=== PATIENT | male | born 1955 | race Caucasian/White ===

== ENCOUNTER 2017-02-04 10:38 | Inpatient (IN) | payer MEDICAID ==
[~2017-02-04] VITALS: Ht 182.9 cm; Wt 73.0 kg
[2017-02-04 11:31] LABS: BASOPHIL % 0.5 % (0-2); PLATELET COUNT 245 x10^3mcL (130-400); RED CELL DISTRIBUTION WIDTH 15.4 % (11.5-14.5)
[2017-02-04 11:42] LABS: CALCIUM 8.5 mg/dL (8.5-10.1); CARBON DIOXIDE 18.9 mmol/L (21-32); CREATININE SERUM 1.4 mg/dL (0.7-1.3); POTASSIUM SERUM 3.6 mmol/L (3.5-5.1)
[2017-02-04 11:45] LABS: ALBUMIN 3.6 g/dL (3.4-5.0); BILIRUBIN TOTAL 0.8 mg/dL (0.20-1.00); TOTAL PROTEIN, SERUM 7.2 g/dL (6.4-8.2)
[2017-02-04 12:00] LABS: CK-MB 3.9 ng/mL (0-3.6)
[2017-02-04 14:21] LABS: FREE T4 1.04 ng/dL (0.76-1.46); FREE THYROXINE INDEX 2.2 ug/dL (1.4-4.5); T4(THYROXINE) 6.5 ug/dL (4.7-13.3)
[2017-02-04 14:57] VITALS: BP 168/112
[2017-02-04 16:28] VITALS: BP 121/79
[2017-02-04 19:43] VITALS: BP 168/100
[2017-02-04 23:14] VITALS: BP 152/108
[2017-02-05 03:06] LABS: BASOPHIL % 0.5 % (0-2); PLATELET COUNT 214 x10^3mcL (130-400)
[2017-02-05 03:10] LABS: RED CELL DISTRIBUTION WIDTH 15.1 % (11.5-14.5)
[2017-02-05 03:20] LABS: CALCIUM 8.5 mg/dL (8.5-10.1); CARBON DIOXIDE 22.9 mmol/L (21-32); CHLORIDE SERUM 105 mmol/L (98-107); GFR1 > 60 mL/min; GLUCOSE SERUM 91 mg/dL (74-106); MAGNESIUM 1.8 mg/dL (1.8-2.4); PHOSPHOROUS 3.2 mg/dL (2.5-4.9); POTASSIUM SERUM 3.2 mmol/L (3.5-5.1); SODIUM SERUM 137 mmol/L (136-145)
[2017-02-05 03:21] VITALS: BP 136/73
[2017-02-05 07:45] VITALS: BP 132/103
[2017-02-05 11:45] VITALS: BP 163/72
[2017-02-05 15:45] VITALS: BP 149/78
[2017-02-05 17:05] LABS: microscopic required? NO
[2017-02-05 17:16] LABS: urine erythrocyte NEGATIVE (NEGATIVE)
[2017-02-05 17:34] LABS: AMPHETAMINE QUAL UR POSITIVE (NEG <=1000)
[2017-02-05 20:40] VITALS: BP 159/97
[2017-02-06 05:04] VITALS: BP 133/77
[2017-02-06 09:23] VITALS: BP 151/87
[2017-02-06 09:30] VITALS: BP 151/87
[2017-02-06] MEDS ORDERED: LIPI10 PO (09:30)
[2017-02-06] MEDS ORDERED: TOP50 PO (09:44)
[2017-02-06] MEDS ORDERED: ZES10 PO (09:45)
[2017-02-06] MEDS ORDERED: ECO81 PO (09:45)
[2017-02-06] MEDS ORDERED: THERA TABS1 TAB PO (09:45)
[2017-02-06] MEDS ORDERED: LASIX40 MG PO (09:46)
[2017-02-06 12:06] VITALS: BP 151/87
[2017-02-06] MEDS ORDERED: COUMADIN3 MG PO (12:06)
[2017-02-06 12:49] VITALS: BP 151/87
[2017-02-06 13:11] VITALS: BP 140/94
== END 2017-02-06 13:50 | disposition home or self-care (01) | DRG 194 ==
LOC: ED 10:38 → IC 12:51 → MU 02-05 20:09 → DU 02-05 20:26
PROVIDERS: Emergency Medicine; Internal Medicine Interventional Cardiology; ADMIT Family Medicine
DX: I11.0 Hypertensive heart disease with heart failure (principal); J96.01 Acute respiratory failure with hypoxia; N17.0 Acute kidney failure with tubular necrosis; I50.43 Acute on chronic combined systolic (congestive) and diastolic (congestive) heart failure; E87.2 Acidosis; J44.1 Chronic obstructive pulmonary disease with (acute) exacerbation; I16.1 Hypertensive emergency; E78.5 Hyperlipidemia, unspecified; E87.6 Hypokalemia; K21.9 Gastro-esophageal reflux disease without esophagitis; M94.0 Chondrocostal junction syndrome [Tietze]; I48.92 Unspecified atrial flutter; T43.624A Poisoning by amphetamines, undetermined, initial encounter; I42.7 Cardiomyopathy due to drug and external agent; Y92.89 Other specified places as the place of occurrence of the external cause; F17.210 Nicotine dependence, cigarettes, uncomplicated; I27.2 Other secondary pulmonary hypertension
CPT/HCPCS: 36600; 80307; 83880; 84439; 94150; J0282; J0360; J1644; J1940; J2270; J3010; J3490; J7030; J7620; Q0092

== ENCOUNTER 2018-03-01 12:21 | Inpatient (IN) | payer OTHER ==
[~2018-03-01] VITALS: Ht 182.9 cm; Wt 71.0 kg
[~2018-03-01 12:21] MED LIST: COUMADIN3 MG PO; ECO81 PO; LASIX40 MG PO; LIPI10 PO; THERA TABS1 TAB PO; TOP50 PO; ZES10 PO
[2018-03-01 12:58] LABS: BASOPHIL % 0.3 % (0-2); PLATELET COUNT 221 x10^3mcL (130-400); RED CELL DISTRIBUTION WIDTH 14.3 % (11.5-14.5)
[2018-03-01 13:08] LABS: CALCIUM 9.2 mg/dL (8.5-10.1); CARBON DIOXIDE 26.4 mmol/L (21-32); CHLORIDE SERUM 101 mmol/L (98-107); CREATININE SERUM 1.2 mg/dL (0.7-1.3); GFR1 > 60 mL/min; GLUCOSE SERUM 140 mg/dL (74-106); POTASSIUM SERUM 5.2 mmol/L (3.5-5.1); SODIUM SERUM 137 mmol/L (136-145)
[2018-03-01 13:12] LABS: ALBUMIN 3.7 g/dL (3.4-5.0); ALKALINE PHOSPHATASE 99 U/L (46-116); ALT/SGPT 85 U/L (16-63); AST/SGOT 71 U/L (15-37); TOTAL PROTEIN, SERUM 7.3 g/dL (6.4-8.2)
[2018-03-01 16:05] LABS: CHOLESTEROL/HDL RATIO 3.1; MAGNESIUM 2.1 mg/dL (1.8-2.4)
[2018-03-01 16:07] LABS: T3 TOTAL 0.91 ng/mL
[2018-03-01 16:11] VITALS: BP 149/116
[2018-03-01 16:12] LABS: FREE T4 0.99 ng/dL (0.76-1.46); FREE THYROXINE INDEX 2.5 ug/dL (1.4-4.5); T4(THYROXINE) 7.1 ug/dL (4.7-13.3)
[2018-03-01 16:13] VITALS: Ht 182.9 cm; Wt 71.0 kg
[2018-03-01 16:25] VITALS: BP 149/116
[2018-03-01 18:13] VITALS: BP 138/90
[2018-03-01 20:29] LABS: microscopic required? NO
[2018-03-01 20:43] LABS: UA SPECIFIC GRAVITY 1.015 (1.005-1.035); urine erythrocyte NEGATIVE (NEGATIVE)
[2018-03-01 20:51] LABS: AMPHETAMINE QUAL UR POSITIVE (NEG <=1000)
== END 2018-03-02 04:44 | disposition expired | DRG 190 ==
LOC: ED 12:21 → DU 14:45 → IC 21:14 → DU 21:51 → IC 22:01
PROVIDERS: Emergency Medicine; Family Medicine
PROC: 5A12012 Performance of Cardiac Output, Single, Manual (ICD-10-PCS; principal; 2018-03-01)
PROC: 5A1935Z Respiratory Ventilation, Less than 24 Consecutive Hours (ICD-10-PCS; 2018-03-01)
PROC: 0BH17EZ Insertion of Endotracheal Airway into Trachea, Via Natural or Artificial Opening (ICD-10-PCS; 2018-03-01)
DX: I21.A1 Myocardial infarction type 2 (principal); J96.21 Acute and chronic respiratory failure with hypoxia; I49.01 Ventricular fibrillation; I46.9 Cardiac arrest, cause unspecified; I50.43 Acute on chronic combined systolic (congestive) and diastolic (congestive) heart failure; J44.1 Chronic obstructive pulmonary disease with (acute) exacerbation; I11.0 Hypertensive heart disease with heart failure; I48.91 Unspecified atrial fibrillation; I48.92 Unspecified atrial flutter; E87.5 Hyperkalemia; R73.03 Prediabetes; R74.0 Nonspecific elevation of levels of transaminase and lactic acid dehydrogenase [LDH]; E78.5 Hyperlipidemia, unspecified; I73.9 Peripheral vascular disease, unspecified; F15.10 Other stimulant abuse, uncomplicated; F17.210 Nicotine dependence, cigarettes, uncomplicated; Z91.19 Patient's noncompliance with other medical treatment and regimen; Z79.82 Long term (current) use of aspirin; Z79.899 Other long term (current) drug therapy; Z79.01 Long term (current) use of anticoagulants
CPT/HCPCS: 82962; 83880; 84439; 99406; J0282; J1940; J1956; J2930; J3490; J7042; J7060; Q0092